=== PATIENT | male | born 1965 | race American Indian/Alaskan Native ===

== ENCOUNTER 2021-05-15 11:29 | Day surgery (SDC) | payer OTHER ==
[~2021-05-15 11:29] MED LIST: Acetaminophen 1,000 MG in Premix Bag 1 BAG IV SCH; Albuterol 0.083% 2.5 MG/3 ML Neb Soln NEB PRN; Bupivacaine 0.5% 30 ML SDV ONE; HYDROmorphone 1 MG/ML Syringe IVPUSH PRN; Lactated Ringers 1,000 ML IV SCH; Metoclopramide 10 MG/2 ML SDV IVPUSH PRN; Morphine 4 MG/ML VIAL IVPUSH PRN; Naloxone 0.4 MG/ML SDV IVPUSH PRN; Octyl 2-Cyanoacrylate 1 Tube ONE; Ondansetron 4 MG/2 ML SDV IVPUSH PRN; Pregabalin 75 MG Cap PO SCH; ceFAZolin 2 GM in Premix Bag 1 BAG IV SCH; fentaNYL 100 MCG/2 ML SDV IVPUSH PRN
[2021-05-15] MEDS ORDERED: fentaNYL 250 MCG/5 ML SDV ONE (12:13)
[2021-05-15] MEDS ORDERED: Propofol 200 MG/20 ML SDV ONE (12:13)
[2021-05-15] MEDS ORDERED: Midazolam 1 MG/ML 2 ML SDV ONE (12:13)
[2021-05-15] MEDS ORDERED: Ondansetron 4 MG/2 ML SDV ONE (12:22)
[2021-05-15] MEDS ORDERED: Sugammadex Sodium 200 MG/2 ML VIAL ONE (12:22)
[2021-05-15] MEDS ORDERED: Rocuronium Bromide 50 MG/5 ML Syringe ONE (12:22)
[2021-05-15] MEDS ORDERED: ePHEDrine 50 MG/ML SDV ONE (14:32)
[2021-05-15] MEDS ORDERED: Glycopyrrolate 0.2 MG/ML SDV ONE (14:46)
[2021-05-15] MEDS ORDERED: Acetaminophen/HYDROcodone 325-10 MG Tab PO ONE (16:48)
== END 2021-05-15 17:35 | disposition home or self-care (01) ==
LOC: MW.SDS 11:29
PROVIDERS: ATTEND Surgery
DX: K40.90 Unilateral inguinal hernia, without obstruction or gangrene, not specified as recurrent (principal); D17.6 Benign lipomatous neoplasm of spermatic cord; J44.9 Chronic obstructive pulmonary disease, unspecified; M19.90 Unspecified osteoarthritis, unspecified site; I10 Essential (primary) hypertension; F17.210 Nicotine dependence, cigarettes, uncomplicated; K21.9 Gastro-esophageal reflux disease without esophagitis; G62.9 Polyneuropathy, unspecified; Z98.890 Other specified postprocedural states; Z79.1 Long term (current) use of non-steroidal anti-inflammatories (NSAID); Z79.899 Other long term (current) drug therapy
CPT/HCPCS: 49650; A9270; C1781; J1170; J2250; J2370; J2405; J2704; J3010; J3490; J7120; 00840; J0690

== ENCOUNTER 2021-12-23 20:01 | Emergency (ER) | payer OTHER | END 2021-12-23 21:50 | disposition home or self-care (01) | LOC: MW.ED 20:01 | DX: H60.502 Unspecified acute noninfective otitis externa, left ear (principal); J44.9 Chronic obstructive pulmonary disease, unspecified; I10 Essential (primary) hypertension; Z79.899 Other long term (current) drug therapy | CPT/HCPCS: 99282 ==

== ENCOUNTER 2024-07-12 16:12 | Emergency (ER) | payer OTHER ==
[2024-07-12] MEDS: Albuterol/Ipratropium 3.0-0.5 MG/3 ML Neb Soln NEB ONE (17:18)
== END 2024-07-12 18:34 | disposition home or self-care (01) ==
LOC: MW.ED 16:12
DX: Z77.098 Contact with and (suspected) exposure to other hazardous, chiefly nonmedicinal, chemicals (principal); Z75.3 Unavailability and inaccessibility of health-care facilities; I10 Essential (primary) hypertension; J44.9 Chronic obstructive pulmonary disease, unspecified
CPT/HCPCS: 71046; 99285; J7620; 99282; A9270-GY